=== PATIENT | female | born 1980 | race Caucasian/White ===

== ENCOUNTER 2019-01-21 00:34 | Emergency (ER) | payer MEDICAID ==
[~2019-01-21] VITALS: Ht 180.3 cm; Wt 175.4 kg
[~2019-01-21 00:34] MED LIST: ACETAMINOPHEN-1 EAC1 PO; ALBUTEROL INH; ALBUTEROL INHAL17 GM IH; BIAXIN 500 MG500 M1; DOXYCYCLINE 10100 MG PO; FAMOTIDINE PO; FLONASE 0.05%50 MCG NASAL; GLUCOPHAGE500 MG; HYDROCODONE-AP1 EAC6 PO; LEVSIN0.125 MG PO; LOPERAMIDE 2 MG2 M1 PO; LORTAB 10-3251 EACH PO; LORTAB 5 MG/5001 TA1 PO; MAPAP16 MG/0.5; MEDROLDOSEPACK PO; MOBIC7.5 MG PO; NABUMETONE 750750 M1 PO; NAPROSYN500 MG PO; NEXIUM40 MG PO; NORCO 5-325 TA1 EACH PO; NORFLEX100 MG PO; OMEPRAZOLE 20 M20 MG PO; OMEPRAZOLE40 MG PO; PEPCID40 MG PO; PERCOCET 5-3251 EACH PO; PHENERGAN 25 MG25 M1 PO; PHENERGAN25 MG/1 M1 PO; PREDNISONE50 MG PO; PREVACID 30MG C30 M1 PO; PRILOSEC 10MG C10 M1 PO; PRILOSEC 20 MG20 MG PO; PROTONIX40 M1 PO; PROTONIX40 M4 PO; PROTONIX40 MG PO; PROVERA5 MG; PROZAC20 MG PO; ROBAXIN500 MG PO; ROBITUSSIN COU118 M4; SERTRALINE HCL50 MG PO; TESSALON PERLE100 MG; TESSALON PERLE100 MG PO; TRAMADOL 50 MG50 MG PO; TYLENOL EXTRA500 MG PO; UNKNOWN PSYCH MED; VENTOLIN17 GM INH; ZANTAC 150MG T150 M1 PO; ZANTAC 150MG T150 MG PO; ZOFRAN 4 MG ORAL4 M1 DIS; ZOFRAN ODT4 MG PO; ZOFRAN4 MG PO; ZOLOFT PO; ZOLOFT100 MG PO
[2019-01-21 01:13] LABS: URINE BILIRUBIN NEGATIVE (Negative); URINE BLOOD NEGATIVE (Negative); URINE CLARITY CLEAR; URINE COLOR YELLOW; URINE GLUCOSE-RANDOM NEGATIVE (Negative); URINE KETONES TRACE (Negative); URINE LEUKOCYTES-REFLEX TRACE (Negative); URINE NITRITE-REFLEX NEGATIVE (Negative); URINE PROTEIN NEGATIVE (Negative); URINE SPECIFIC GRAVITY >= 1.030 (1.005-1.030); URINE UROBILINOGEN 0.2 E.U./dl (0.2-1.0)
[2019-01-21 01:23] LABS: BACTERIA-REFLEX >30 Many /HPF (None Seen); CASTS None Seen /LPF (None Seen); MUCUS 4-6 Moderate strn/LPF (None Seen); SQUAMOUS 4-10 Moderate /LPF (0-3); URINE RBC 0-2 Rare /HPF (0-2); URINE WBC-REFLEX 6-15 Few /HPF (0-5)
[2019-01-21 01:24] LABS: CRYSTALS None Seen /LPF (None Seen)
[2019-01-21 01:33] LABS: ABSOLUTE BASOPHILS 0.1 thou/uL (0.0-0.2); ABSOLUTE EOSINOPHILS 0.3 thou/uL (0.0-0.7); ABSOLUTE LYMPHOCYTES 2.4 thou/uL (0.8-5.3); ABSOLUTE MONOCYTES 0.8 thou/uL (0.0-1.2); ABSOLUTE NEUTROPHILS 4.5 thou/uL (1.6-8.1); BASOPHILS 1.1 %; EOSINOPHILS 3.5 %; HEMATOCRIT 44.6 % (37.0-47.0); HEMOGLOBIN 15.3 gm/dL (12.0-15.0); LYMPHOCYTES 29.3 %; MCH 29.9 pg (26.0-34.0); MCHC 34.3 g/dL (28.0-37.0); MCV 87.3 fL (80.0-100.0); MONOCYTES 10.1 %; NUCLEATED RBCS 0 /100WBC; PLATELET COUNT* 172 thou/uL (150-400); RDW-CV 13.2 % (10.5-14.5); WBC 8.1 thou/uL (4.0-11.0)
[2019-01-21 02:07] LABS: ALBUMIN 3.7 g/dL (3.4-5.0); CALCIUM 9.4 mg/dL (8.5-10.1); CREATININE 0.9 mg/dL (0.6-1.3); POTASSIUM 3.7 mmol/L (3.5-5.1); TOTAL BILIRUBIN 0.5 mg/dL (<0.1-1.0); TOTAL PROTEIN 7.9 g/dL (6.4-8.2)
[2019-01-21] MEDS ORDERED: ZOFRAN ODT4 MG DISSOLVE (04:04)
[2019-01-21] MEDS ORDERED: HYDROCODONE-AP1 EAC6 PO (04:04)
[2019-01-21 04:33] VITALS: BP 123/84
== END 2019-01-21 04:36 | disposition home or self-care (01) ==
LOC: M.ERS 00:34
PROVIDERS: Emergency Medicine Emergency Medical Services
DX: R10.31 Right lower quadrant pain (principal); R11.2 Nausea with vomiting, unspecified; F17.210 Nicotine dependence, cigarettes, uncomplicated; J45.909 Unspecified asthma, uncomplicated; K58.9 Irritable bowel syndrome, unspecified; K21.9 Gastro-esophageal reflux disease without esophagitis; Z88.0 Allergy status to penicillin; Z88.8 Allergy status to other drugs, medicaments and biological substances; Z88.1 Allergy status to other antibiotic agents; Z88.6 Allergy status to analgesic agent; Z90.49 Acquired absence of other specified parts of digestive tract; Z90.710 Acquired absence of both cervix and uterus; Z85.43 Personal history of malignant neoplasm of ovary

== ENCOUNTER 2019-01-25 04:41 | Emergency (ER) | payer MEDICAID ==
[~2019-01-25] VITALS: Ht 180.3 cm; Wt 172.4 kg
[~2019-01-25 04:41] MED LIST changes: +ZOFRAN ODT4 MG DISSOLVE
[2019-01-25 05:43] LABS: ABSOLUTE BASOPHILS 0.1 thou/uL (0.0-0.2); ABSOLUTE EOSINOPHILS 0.3 thou/uL (0.0-0.7); ABSOLUTE LYMPHOCYTES 2.6 thou/uL (0.8-5.3); ABSOLUTE MONOCYTES 0.9 thou/uL (0.0-1.2); EOSINOPHILS 3.4 %; HEMATOCRIT 43.2 % (37.0-47.0); HEMOGLOBIN 14.6 gm/dL (12.0-15.0); LYMPHOCYTES 29.6 %; MCH 29.4 pg (26.0-34.0); MCHC 33.8 g/dL (28.0-37.0); MCV 87.1 fL (80.0-100.0); MPV 8.1 fl. (7.2-11.1); NUCLEATED RBCS 0 /100WBC; PLATELET COUNT* 165 thou/uL (150-400); RBC 4.95 mil/uL (4.20-5.00); RDW-CV 12.7 % (10.5-14.5); WBC 8.9 thou/uL (4.0-11.0)
[2019-01-25 05:48] LABS: URINE BILIRUBIN NEGATIVE (Negative); URINE BLOOD NEGATIVE (Negative); URINE CLARITY CLEAR; URINE COLOR YELLOW; URINE GLUCOSE-RANDOM NEGATIVE (Negative); URINE KETONES NEGATIVE (Negative); URINE LEUKOCYTES-REFLEX NEGATIVE (Negative); URINE NITRITE-REFLEX NEGATIVE (Negative); URINE PROTEIN NEGATIVE (Negative); URINE SPECIFIC GRAVITY >= 1.030 (1.005-1.030); URINE UROBILINOGEN 0.2 E.U./dl (0.2-1.0)
[2019-01-25 05:51] LABS: ALBUMIN 3.4 g/dL (3.4-5.0); CALCIUM 9.3 mg/dL (8.5-10.1); POTASSIUM 3.8 mmol/L (3.5-5.1); TOTAL BILIRUBIN 0.3 mg/dL (<0.1-1.0); TOTAL PROTEIN 7.4 g/dL (6.4-8.2)
[2019-01-25 05:54] LABS: AMP/METHAMP Negative (Negative); BARBITURATES Negative (Negative); BENZODIAZEPINES Negative (Negative); COCAINE Negative (Negative); METHADONE Negative (Negative); OPIATES Negative (Negative); PCP Negative (Negative); THC Negative (Negative)
[2019-01-25] MEDS ORDERED: PERCOCET 10-321 EACH PO (07:05)
[2019-01-25 07:41] VITALS: BP 149/96
== END 2019-01-25 07:43 | disposition home or self-care (01) ==
LOC: M.ERS 04:41
PROVIDERS: Emergency Medicine
DX: R19.07 Generalized intra-abdominal and pelvic swelling, mass and lump (principal); F17.210 Nicotine dependence, cigarettes, uncomplicated; J45.909 Unspecified asthma, uncomplicated; K21.9 Gastro-esophageal reflux disease without esophagitis; K58.9 Irritable bowel syndrome, unspecified; Z88.8 Allergy status to other drugs, medicaments and biological substances; Z88.0 Allergy status to penicillin; Z88.6 Allergy status to analgesic agent; Z90.49 Acquired absence of other specified parts of digestive tract; Z90.710 Acquired absence of both cervix and uterus; Z85.43 Personal history of malignant neoplasm of ovary

== ENCOUNTER 2019-02-27 01:14 | Emergency (ER) | payer MEDICAID ==
[~2019-02-27] VITALS: Ht 180.3 cm; Wt 172.4 kg
[~2019-02-27 01:14] MED LIST changes: +PERCOCET 10-321 EACH PO
[2019-02-27] MEDS ORDERED: WELLBUTRIN SR150 MG PO (01:18)
[2019-02-27 01:30] LABS: ABSOLUTE BASOPHILS 0.1 thou/uL (0.0-0.2); ABSOLUTE EOSINOPHILS 0.3 thou/uL (0.0-0.7); ABSOLUTE NEUTROPHILS 4.9 thou/uL (1.6-8.1); BASOPHILS 0.8 %; EOSINOPHILS 3.3 %; HEMATOCRIT 44.7 % (37.0-47.0); HEMOGLOBIN 14.9 gm/dL (12.0-15.0); LYMPHOCYTES 32.5 %; MCH 29.2 pg (26.0-34.0); MCHC 33.4 g/dL (28.0-37.0); MCV 87.3 fL (80.0-100.0); MONOCYTES 10.5 %; MPV 7.4 fl. (7.2-11.1); NUCLEATED RBCS 0 /100WBC; PLATELET COUNT* 176 thou/uL (150-400); POLYS 52.9 %; RBC 5.12 mil/uL (4.20-5.00); RDW-CV 12.9 % (10.5-14.5); WBC 9.2 thou/uL (4.0-11.0)
[2019-02-27 01:39] LABS: ANION GAP 8 mmol/L (7-16); BUN 12 mg/dL (7-18); CALCIUM 9.2 mg/dL (8.5-10.1); CHLORIDE 104 mmol/L (98-107); CO2 31 mmol/L (21-32); CREATININE 0.9 mg/dL (0.6-1.3); GLUCOSE 97 mg/dL (70-99); POTASSIUM 3.8 mmol/L (3.5-5.1); SODIUM 143 mmol/L (136-145)
[2019-02-27 01:40] LABS: URINE BILIRUBIN NEGATIVE (Negative); URINE BLOOD NEGATIVE (Negative); URINE CLARITY CLEAR; URINE COLOR YELLOW; URINE GLUCOSE-RANDOM NEGATIVE (Negative); URINE KETONES NEGATIVE (Negative); URINE LEUKOCYTES-REFLEX NEGATIVE (Negative); URINE NITRITE-REFLEX NEGATIVE (Negative); URINE PROTEIN NEGATIVE (Negative); URINE SPECIFIC GRAVITY >= 1.030 (1.005-1.030); URINE UROBILINOGEN 0.2 E.U./dl (0.2-1.0)
[2019-02-27 01:54] LABS: ALBUMIN 3.6 g/dL (3.4-5.0); ALKALINE PHOSPHATASE 128 U/L (46-116); LIPASE 198 U/L (73-393); SGOT 57 U/L (15-37); SGPT 123 U/L (30-65); TOTAL BILIRUBIN 0.4 mg/dL (<0.1-1.0); TOTAL PROTEIN 7.7 g/dL (6.4-8.2); TROPONIN-I LEVEL <0.06 ng/mL (<0.06)
[2019-02-27] MEDS ORDERED: ZOFRAN ODT4 MG DISSOLVE (04:06)
[2019-02-27] MEDS ORDERED: HYDROCODONE-AP1 EAC6 PO (04:06)
[2019-02-27 04:26] VITALS: BP 140/92
--- NOTE | 2019-02-28 14:27 | EKG ---
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
== END 2019-02-27 04:27 | disposition home or self-care (01) ==
LOC: M.ERS 01:14
PROVIDERS: Emergency Medicine Emergency Medical Services
DX: R10.31 Right lower quadrant pain (principal); F17.210 Nicotine dependence, cigarettes, uncomplicated; J45.909 Unspecified asthma, uncomplicated; K21.9 Gastro-esophageal reflux disease without esophagitis; Z90.49 Acquired absence of other specified parts of digestive tract; Z90.710 Acquired absence of both cervix and uterus; Z85.43 Personal history of malignant neoplasm of ovary; Z87.442 Personal history of urinary calculi; Z88.8 Allergy status to other drugs, medicaments and biological substances; Z88.0 Allergy status to penicillin; Z88.1 Allergy status to other antibiotic agents; Z88.6 Allergy status to analgesic agent

== ENCOUNTER 2019-03-09 15:03 | Emergency (ER) | payer MEDICAID ==
[~2019-03-09] VITALS: Ht 180.3 cm; Wt 154.2 kg
[~2019-03-09 15:03] MED LIST changes: +WELLBUTRIN SR150 MG PO
[2019-03-09 15:44] LABS: ABSOLUTE BASOPHILS 0.1 thou/uL (0.0-0.2); ABSOLUTE EOSINOPHILS 0.3 thou/uL (0.0-0.7); ABSOLUTE LYMPHOCYTES 2.2 thou/uL (0.8-5.3); ABSOLUTE MONOCYTES 0.8 thou/uL (0.0-1.2); ABSOLUTE NEUTROPHILS 4.4 thou/uL (1.6-8.1); EOSINOPHILS 3.3 %; HEMATOCRIT 41.3 % (37.0-47.0); HEMOGLOBIN 13.9 gm/dL (12.0-15.0); LYMPHOCYTES 28.9 %; MCH 29.1 pg (26.0-34.0); MCHC 33.7 g/dL (28.0-37.0); MCV 86.4 fL (80.0-100.0); MONOCYTES 10.7 %; MPV 7.4 fl. (7.2-11.1); NUCLEATED RBCS 0 /100WBC; PLATELET COUNT* 179 thou/uL (150-400); POLYS 56.1 %; RBC 4.77 mil/uL (4.20-5.00); RDW-CV 13.2 % (10.5-14.5); WBC 7.8 thou/uL (4.0-11.0)
[2019-03-09 15:47] LABS: CALCIUM 9.2 mg/dL (8.5-10.1); CREATININE 0.8 mg/dL (0.6-1.3); POTASSIUM 3.8 mmol/L (3.5-5.1)
[2019-03-09 17:01] LABS: URINE BILIRUBIN NEGATIVE (Negative); URINE BLOOD NEGATIVE (Negative); URINE CLARITY CLEAR; URINE COLOR YELLOW; URINE GLUCOSE-RANDOM NEGATIVE (Negative); URINE KETONES NEGATIVE (Negative); URINE LEUKOCYTES-REFLEX NEGATIVE (Negative); URINE NITRITE-REFLEX NEGATIVE (Negative); URINE PROTEIN TRACE (Negative); URINE SPECIFIC GRAVITY 1.025 (1.005-1.030); URINE UROBILINOGEN 0.2 E.U./dl (0.2-1.0)
[2019-03-09 17:52] VITALS: BP 164/85
== END 2019-03-09 17:53 | disposition home or self-care (01) ==
LOC: M.ERS 15:03
PROVIDERS: Nurse Practitioner Psychiatric/Mental Health
DX: R10.31 Right lower quadrant pain (principal); R11.2 Nausea with vomiting, unspecified; J45.909 Unspecified asthma, uncomplicated; K21.9 Gastro-esophageal reflux disease without esophagitis; F17.210 Nicotine dependence, cigarettes, uncomplicated; Z88.0 Allergy status to penicillin; Z88.1 Allergy status to other antibiotic agents; Z90.49 Acquired absence of other specified parts of digestive tract; Z90.710 Acquired absence of both cervix and uterus; Z85.43 Personal history of malignant neoplasm of ovary

== ENCOUNTER 2019-03-11 21:22 | Emergency (ER) | payer MEDICAID ==
[~2019-03-11] VITALS: Ht 180.3 cm; Wt 163.3 kg
[2019-03-11 21:57] LABS: URINE BILIRUBIN NEGATIVE (Negative); URINE BLOOD NEGATIVE (Negative); URINE CLARITY CLEAR; URINE COLOR YELLOW; URINE GLUCOSE-RANDOM NEGATIVE (Negative); URINE KETONES TRACE (Negative); URINE LEUKOCYTES-REFLEX NEGATIVE (Negative); URINE NITRITE-REFLEX NEGATIVE (Negative); URINE PROTEIN NEGATIVE (Negative); URINE SPECIFIC GRAVITY 1.015 (1.005-1.030); URINE UROBILINOGEN 0.2 E.U./dl (0.2-1.0)
[2019-03-11 22:00] LABS: ABSOLUTE BASOPHILS 0.1 thou/uL (0.0-0.2); ABSOLUTE EOSINOPHILS 0.3 thou/uL (0.0-0.7); ABSOLUTE LYMPHOCYTES 2.5 thou/uL (0.8-5.3); ABSOLUTE MONOCYTES 0.7 thou/uL (0.0-1.2); ABSOLUTE NEUTROPHILS 5.1 thou/uL (1.6-8.1); BASOPHILS 1.3 %; EOSINOPHILS 3.8 %; HEMATOCRIT 42.4 % (37.0-47.0); HEMOGLOBIN 14.4 gm/dL (12.0-15.0); LYMPHOCYTES 28.7 %; MCH 29.6 pg (26.0-34.0); MPV 7.4 fl. (7.2-11.1); NUCLEATED RBCS 0 /100WBC; PLATELET COUNT* 181 thou/uL (150-400); POLYS 58.2 %; RBC 4.87 mil/uL (4.20-5.00); RDW-CV 13.1 % (10.5-14.5); WBC 8.7 thou/uL (4.0-11.0)
[2019-03-11 22:06] LABS: CALCIUM 9.2 mg/dL (8.5-10.1); POTASSIUM 3.8 mmol/L (3.5-5.1)
[2019-03-11 22:11] LABS: ALBUMIN 3.4 g/dL (3.4-5.0); TOTAL BILIRUBIN 0.3 mg/dL (<0.1-1.0); TOTAL PROTEIN 7.3 g/dL (6.4-8.2)
[2019-03-11 22:22] VITALS: BP 166/79
== END 2019-03-11 22:22 | disposition home or self-care (01) ==
LOC: M.ERS 21:22
PROVIDERS: Emergency Medicine
DX: G89.29 Other chronic pain (principal); R10.31 Right lower quadrant pain; J45.909 Unspecified asthma, uncomplicated; K21.9 Gastro-esophageal reflux disease without esophagitis; F31.9 Bipolar disorder, unspecified; Z85.43 Personal history of malignant neoplasm of ovary; Z90.49 Acquired absence of other specified parts of digestive tract; Z90.710 Acquired absence of both cervix and uterus; F17.210 Nicotine dependence, cigarettes, uncomplicated; Z88.0 Allergy status to penicillin; Z88.1 Allergy status to other antibiotic agents; Z88.8 Allergy status to other drugs, medicaments and biological substances

== ENCOUNTER 2019-03-20 22:18 | Emergency (ER) | payer MEDICAID ==
[~2019-03-20] VITALS: Ht 180.3 cm; Wt 172.4 kg
[2019-03-20 23:27] LABS: ABSOLUTE BASOPHILS 0.1 thou/uL (0.0-0.2); ABSOLUTE EOSINOPHILS 0.2 thou/uL (0.0-0.7); ABSOLUTE LYMPHOCYTES 2.2 thou/uL (0.8-5.3); ABSOLUTE MONOCYTES 0.6 thou/uL (0.0-1.2); ABSOLUTE NEUTROPHILS 3.8 thou/uL (1.6-8.1); BASOPHILS 1.1 %; EOSINOPHILS 3.6 %; HEMOGLOBIN 14.8 gm/dL (12.0-15.0); LYMPHOCYTES 32.4 %; MCH 29.3 pg (26.0-34.0); MCHC 33.5 g/dL (28.0-37.0); MCV 87.5 fL (80.0-100.0); MONOCYTES 8.6 %; MPV 7.5 fl. (7.2-11.1); NUCLEATED RBCS 0 /100WBC; PLATELET COUNT* 170 thou/uL (150-400); POLYS 54.3 %; RBC 5.03 mil/uL (4.20-5.00); RDW-CV 13.2 % (10.5-14.5); WBC 6.9 thou/uL (4.0-11.0)
[2019-03-20 23:31] LABS: CALCIUM 8.9 mg/dL (8.5-10.1); CREATININE 0.8 mg/dL (0.6-1.3); POTASSIUM 4.3 mmol/L (3.5-5.1)
[2019-03-20 23:36] LABS: ALBUMIN 3.4 g/dL (3.4-5.0); TOTAL BILIRUBIN 0.5 mg/dL (<0.1-1.0); TOTAL PROTEIN 7.4 g/dL (6.4-8.2)
[2019-03-20 23:57] LABS: URINE BILIRUBIN NEGATIVE (Negative); URINE BLOOD NEGATIVE (Negative); URINE CLARITY CLEAR; URINE COLOR YELLOW; URINE GLUCOSE-RANDOM NEGATIVE (Negative); URINE KETONES NEGATIVE (Negative); URINE LEUKOCYTES-REFLEX NEGATIVE (Negative); URINE NITRITE-REFLEX NEGATIVE (Negative); URINE PROTEIN NEGATIVE (Negative); URINE SPECIFIC GRAVITY >= 1.030 (1.005-1.030); URINE UROBILINOGEN 0.2 E.U./dl (0.2-1.0)
[2019-03-21] MEDS ORDERED: ONDANSETRON HCL4 M2 PO (00:36)
[2019-03-21 01:27] VITALS: BP 131/80
--- NOTE | 2019-03-21 11:35 | EKG ---
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 03/21/19 1135 2306 2306 Thanh Maurice MD, [facility] /EPI
== END 2019-03-21 01:28 | disposition home or self-care (01) ==
LOC: M.ERS 22:18
PROVIDERS: Physician Assistant
DX: R10.13 Epigastric pain (principal); R11.2 Nausea with vomiting, unspecified; F17.210 Nicotine dependence, cigarettes, uncomplicated; F31.9 Bipolar disorder, unspecified; K21.9 Gastro-esophageal reflux disease without esophagitis; J45.909 Unspecified asthma, uncomplicated; Z88.8 Allergy status to other drugs, medicaments and biological substances; Z88.0 Allergy status to penicillin; Z88.1 Allergy status to other antibiotic agents; Z88.6 Allergy status to analgesic agent; Z90.49 Acquired absence of other specified parts of digestive tract; Z90.710 Acquired absence of both cervix and uterus; Z85.43 Personal history of malignant neoplasm of ovary

== ENCOUNTER 2019-04-28 22:54 | Emergency (ER) | payer MEDICAID ==
[~2019-04-28] VITALS: Ht 180.3 cm; Wt 172.4 kg
[~2019-04-28 22:54] MED LIST changes: +ONDANSETRON HCL4 M2 PO
[2019-04-28 23:24] LABS: ABSOLUTE BASOPHILS 0.1 thou/uL (0.0-0.2); ABSOLUTE EOSINOPHILS 0.2 thou/uL (0.0-0.7); ABSOLUTE LYMPHOCYTES 2.7 thou/uL (0.8-5.3); ABSOLUTE MONOCYTES 0.6 thou/uL (0.0-1.2); ABSOLUTE NEUTROPHILS 4.8 thou/uL (1.6-8.1); BASOPHILS 1.3 %; EOSINOPHILS 2.6 %; HEMATOCRIT 41.7 % (37.0-47.0); HEMOGLOBIN 14.2 gm/dL (12.0-15.0); LYMPHOCYTES 32.2 %; MCH 29.6 pg (26.0-34.0); MCHC 34.1 g/dL (28.0-37.0); MCV 86.7 fL (80.0-100.0); MONOCYTES 7.4 %; MPV 7.7 fl. (7.2-11.1); NUCLEATED RBCS 0 /100WBC; PLATELET COUNT* 188 thou/uL (150-400); POLYS 56.5 %; WBC 8.4 thou/uL (4.0-11.0)
[2019-04-28 23:32] LABS: ANION GAP 10 mmol/L (7-16); BUN 13 mg/dL (7-18); CHLORIDE 106 mmol/L (98-107); CO2 27 mmol/L (21-32); CREATININE 1.1 mg/dL (0.6-1.3); GLUCOSE 170 mg/dL (70-99); POTASSIUM 3.6 mmol/L (3.5-5.1); SODIUM 143 mmol/L (136-145)
[2019-04-28 23:37] LABS: INR 0.9; PROTIME 9.7 Seconds (9.20-11.50)
[2019-04-28 23:45] LABS: ALBUMIN 3.5 g/dL (3.4-5.0); ALKALINE PHOSPHATASE 121 U/L (46-116); LIPASE 260 U/L (73-393); NT-PRO BRAIN NAT PEPTIDE 46 pg/mL (<300); SGOT 50 U/L (15-37); SGPT 105 U/L (30-65); TOTAL BILIRUBIN 0.2 mg/dL (<0.1-1.0); TOTAL PROTEIN 7.4 g/dL (6.4-8.2); TROPONIN-I LEVEL <0.06 ng/mL (<0.06)
[2019-04-29] MEDS ORDERED: ACETAMINOPHEN-1 EAC1 PO (01:15)
[2019-04-29 02:05] VITALS: BP 113/64
--- NOTE | 2019-05-01 16:50 | EKG ---
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1980 Requested By: Leia Chandler Order Number: [id number] MD: Hao Keane Measurements Intervals [place] Rate: 104 P: 50 MT: 156 QRS: 37 QRSD: 91 T: 31 QT: 336 QTc: 442 Interpretive Statements Sinus tachycardia Baseline wander in lead(s) V1 Compared to ECG 03/20/2019 23:06:10 Sinus rhythm no longer present T-wave abnormality no longer present Electronically Signed On 05-01-2019 16:49:57 CDT by Hao Keane [email or web address] <ELECTRONICALLY SIGNED> By: Hao Keane MD, FAC 05/01/19 1649 2300 99 Hao Keane MD, [facility] /EPI
== END 2019-04-29 02:05 | disposition home or self-care (01) ==
LOC: M.ERS 22:54
PROVIDERS: Emergency Medicine
DX: R07.89 Other chest pain (principal); R20.0 Anesthesia of skin; J45.909 Unspecified asthma, uncomplicated; K21.9 Gastro-esophageal reflux disease without esophagitis; F17.210 Nicotine dependence, cigarettes, uncomplicated; F31.9 Bipolar disorder, unspecified; R53.1 Weakness; Z90.49 Acquired absence of other specified parts of digestive tract; Z90.710 Acquired absence of both cervix and uterus; Z88.0 Allergy status to penicillin; Z88.1 Allergy status to other antibiotic agents; Z88.5 Allergy status to narcotic agent

== ENCOUNTER 2019-05-29 22:19 | Emergency (ER) | payer MEDICAID ==
[~2019-05-29] VITALS: Ht 180.3 cm; Wt 163.3 kg
[2019-05-30 00:25] LABS: URINE BLOOD NEGATIVE (Negative); URINE CLARITY CLEAR; URINE COLOR YELLOW; URINE GLUCOSE-RANDOM NEGATIVE (Negative); URINE KETONES NEGATIVE (Negative); URINE LEUKOCYTES-REFLEX NEGATIVE (Negative); URINE NITRITE-REFLEX NEGATIVE (Negative); URINE PROTEIN TRACE (Negative); URINE SPECIFIC GRAVITY >= 1.030 (1.005-1.030); URINE UROBILINOGEN 0.2 E.U./dl (0.2-1.0)
[2019-05-30 00:38] LABS: URINE BILIRUBIN 1+ (Negative)
[2019-05-30 00:39] LABS: ICTOTEST (BILI CONFIRMATORY) Negative (Negative)
[2019-05-30] MEDS ORDERED: NORCO 7.5-3251 EACH PO (00:43)
[2019-05-30 01:10] VITALS: BP 134/76
== END 2019-05-30 01:10 | disposition home or self-care (01) ==
LOC: M.ERS 22:19
PROVIDERS: Emergency Medicine
DX: M54.5 Low back pain (principal); F31.9 Bipolar disorder, unspecified; J45.909 Unspecified asthma, uncomplicated; K21.9 Gastro-esophageal reflux disease without esophagitis; F17.210 Nicotine dependence, cigarettes, uncomplicated; Z88.0 Allergy status to penicillin; Z88.1 Allergy status to other antibiotic agents; Z88.6 Allergy status to analgesic agent; Z90.710 Acquired absence of both cervix and uterus; Z90.49 Acquired absence of other specified parts of digestive tract

== ENCOUNTER 2019-06-21 22:41 | Emergency (ER) | payer MEDICAID ==
[~2019-06-21] VITALS: Ht 180.3 cm; Wt 163.3 kg
[~2019-06-21 22:41] MED LIST changes: +NORCO 7.5-3251 EACH PO
[2019-06-21 23:24] LABS: ABSOLUTE BASOPHILS 0.1 thou/uL (0.0-0.2); ABSOLUTE EOSINOPHILS 0.3 thou/uL (0.0-0.7); ABSOLUTE LYMPHOCYTES 2.4 thou/uL (0.8-5.3); ABSOLUTE MONOCYTES 0.8 thou/uL (0.0-1.2); BASOPHILS 1.1 %; EOSINOPHILS 3.1 %; HEMATOCRIT 41.7 % (37.0-47.0); HEMOGLOBIN 14.6 gm/dL (12.0-15.0); MCH 30.2 pg (26.0-34.0); MCHC 35.1 g/dL (28.0-37.0); MCV 86.2 fL (80.0-100.0); MONOCYTES 9.3 %; MPV 7.6 fl. (7.2-11.1); NUCLEATED RBCS 0 /100WBC; PLATELET COUNT* 185 thou/uL (150-400); POLYS 58.5 %; RBC 4.84 mil/uL (4.20-5.00); RDW-CV 13.4 % (10.5-14.5); WBC 8.5 thou/uL (4.0-11.0)
[2019-06-21 23:32] LABS: CALCIUM 9.2 mg/dL (8.5-10.1); POTASSIUM 3.4 mmol/L (3.5-5.1)
[2019-06-21 23:36] LABS: ALBUMIN 3.6 g/dL (3.4-5.0); TOTAL BILIRUBIN 0.5 mg/dL (<0.1-1.0); TOTAL PROTEIN 7.2 g/dL (6.4-8.2)
[2019-06-21] MEDS ORDERED: CARAFATE 1 GM TA1 GM PO (23:59)
[2019-06-22 00:10] VITALS: BP 141/86
--- NOTE | 2019-06-22 09:50 | EKG ---
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
== END 2019-06-22 00:10 | disposition home or self-care (01) ==
LOC: M.ERS 22:41
PROVIDERS: Emergency Medicine
DX: K21.9 Gastro-esophageal reflux disease without esophagitis (principal); F31.9 Bipolar disorder, unspecified; J45.909 Unspecified asthma, uncomplicated; F17.210 Nicotine dependence, cigarettes, uncomplicated; Z88.0 Allergy status to penicillin; Z88.1 Allergy status to other antibiotic agents; Z88.6 Allergy status to analgesic agent; Z88.8 Allergy status to other drugs, medicaments and biological substances; Z90.49 Acquired absence of other specified parts of digestive tract; Z90.710 Acquired absence of both cervix and uterus; Z85.43 Personal history of malignant neoplasm of ovary

== ENCOUNTER 2019-08-10 23:11 | Emergency (ER) | payer MEDICAID ==
[~2019-08-10] VITALS: Ht 180.3 cm; Wt 163.3 kg
[~2019-08-10 23:11] MED LIST changes: +CARAFATE 1 GM TA1 GM PO; +PROMS25 WY RECTAL
[2019-08-10 23:37] LABS: URINE BILIRUBIN NEGATIVE (Negative); URINE BLOOD NEGATIVE (Negative); URINE CLARITY CLEAR; URINE COLOR YELLOW; URINE GLUCOSE-RANDOM NEGATIVE (Negative); URINE KETONES NEGATIVE (Negative); URINE LEUKOCYTES-REFLEX NEGATIVE (Negative); URINE NITRITE-REFLEX NEGATIVE (Negative); URINE PROTEIN NEGATIVE (Negative); URINE SPECIFIC GRAVITY >= 1.030 (1.005-1.030); URINE UROBILINOGEN 0.2 E.U./dl (0.2-1.0)
[2019-08-10 23:44] LABS: AMP/METHAMP Negative (Negative); BARBITURATES Negative (Negative); BENZODIAZEPINES Negative (Negative); COCAINE Negative (Negative); METHADONE Negative (Negative); OPIATES Negative (Negative); PCP Negative (Negative); THC Negative (Negative)
[2019-08-10 23:48] LABS: HEMATOCRIT 41.2 % (37.0-47.0); HEMOGLOBIN 14.4 gm/dL (12.0-15.0); MCH 30.4 pg (26.0-34.0); MCV 86.9 fL (80.0-100.0); MPV 7.5 fl. (7.2-11.1); RBC 4.74 mil/uL (4.20-5.00); RDW-CV 13.3 % (10.5-14.5); WBC 9.6 thou/uL (4.0-11.0)
[2019-08-10 23:57] LABS: CALCIUM 9.5 mg/dL (8.5-10.1); CREATININE 0.9 mg/dL (0.6-1.3); POTASSIUM 3.5 mmol/L (3.5-5.1)
[2019-08-11 00:02] LABS: ALBUMIN 3.6 g/dL (3.4-5.0); TOTAL BILIRUBIN 0.3 mg/dL (<0.1-1.0); TOTAL PROTEIN 7.5 g/dL (6.4-8.2)
[2019-08-11] MEDS ORDERED: ZOFRAN ODT4 MG PO (01:16)
[2019-08-11] MEDS ORDERED: IBUPROFEN 800800 MG PO (01:16)
[2019-08-11 01:25] VITALS: BP 134/78
== END 2019-08-11 01:25 | disposition home or self-care (01) ==
LOC: M.ERS 23:11
PROVIDERS: Personal Emergency Response Attendant
DX: R10.31 Right lower quadrant pain (principal); F31.9 Bipolar disorder, unspecified; J45.909 Unspecified asthma, uncomplicated; K21.9 Gastro-esophageal reflux disease without esophagitis; F17.210 Nicotine dependence, cigarettes, uncomplicated; Z88.1 Allergy status to other antibiotic agents; Z88.6 Allergy status to analgesic agent; Z88.8 Allergy status to other drugs, medicaments and biological substances; Z90.49 Acquired absence of other specified parts of digestive tract; Z90.710 Acquired absence of both cervix and uterus; Z85.43 Personal history of malignant neoplasm of ovary; Z79.899 Other long term (current) drug therapy

== ENCOUNTER 2019-09-15 23:23 | Emergency (ER) | payer MEDICAID ==
[~2019-09-15] VITALS: Ht 180.3 cm; Wt 163.3 kg
[~2019-09-15 23:23] MED LIST changes: +IBUPROFEN 800800 MG PO
[2019-09-15] MEDS ORDERED: HYDROCHLOROTHIAZ1 GM (23:32)
[2019-09-15 23:41] LABS: URINE BILIRUBIN NEGATIVE (Negative); URINE BLOOD NEGATIVE (Negative); URINE CLARITY CLEAR; URINE COLOR YELLOW; URINE GLUCOSE-RANDOM NEGATIVE (Negative); URINE KETONES NEGATIVE (Negative); URINE LEUKOCYTES-REFLEX NEGATIVE (Negative); URINE NITRITE-REFLEX NEGATIVE (Negative); URINE PROTEIN NEGATIVE (Negative); URINE SPECIFIC GRAVITY 1.025 (1.005-1.030); URINE UROBILINOGEN 0.2 E.U./dl (0.2-1.0)
[2019-09-15 23:57] LABS: ABSOLUTE BASOPHILS 0.1 thou/uL (0.0-0.2); ABSOLUTE EOSINOPHILS 0.2 thou/uL (0.0-0.7); ABSOLUTE LYMPHOCYTES 2.8 thou/uL (0.8-5.3); ABSOLUTE MONOCYTES 0.7 thou/uL (0.0-1.2); EOSINOPHILS 2.5 %; HEMATOCRIT 44.7 % (37.0-47.0); HEMOGLOBIN 15.4 gm/dL (12.0-15.0); LYMPHOCYTES 28.1 %; MCH 29.9 pg (26.0-34.0); MCHC 34.4 g/dL (28.0-37.0); MCV 87.1 fL (80.0-100.0); MONOCYTES 7.3 %; MPV 7.7 fl. (7.2-11.1); NUCLEATED RBCS 0 /100WBC; PLATELET COUNT* 182 thou/uL (150-400); POLYS 61.1 %; RBC 5.13 mil/uL (4.20-5.00); RDW-CV 12.6 % (10.5-14.5); WBC 9.9 thou/uL (4.0-11.0)
[2019-09-16 00:06] LABS: CALCIUM 9.3 mg/dL (8.5-10.1); POTASSIUM 3.4 mmol/L (3.5-5.1)
[2019-09-16 00:10] LABS: ALBUMIN 3.7 g/dL (3.4-5.0); TOTAL BILIRUBIN 0.3 mg/dL (<0.1-1.0)
[2019-09-16] MEDS ORDERED: IBU800 MG PO (00:58)
[2019-09-16 01:00] VITALS: BP 100/60
[2019-09-16] MEDS ORDERED: ZOFRAN4 MG PO (01:00)
== END 2019-09-16 01:00 | disposition home or self-care (01) ==
LOC: M.ERS 23:23
PROVIDERS: Personal Emergency Response Attendant
DX: R10.84 Generalized abdominal pain (principal); R11.0 Nausea; J45.909 Unspecified asthma, uncomplicated; K21.9 Gastro-esophageal reflux disease without esophagitis; F31.9 Bipolar disorder, unspecified; F17.210 Nicotine dependence, cigarettes, uncomplicated; Z90.49 Acquired absence of other specified parts of digestive tract; Z90.710 Acquired absence of both cervix and uterus; Z85.43 Personal history of malignant neoplasm of ovary; Z88.1 Allergy status to other antibiotic agents; Z88.0 Allergy status to penicillin; Z88.6 Allergy status to analgesic agent

== ENCOUNTER 2019-10-17 22:23 | Emergency (ER) | payer MEDICAID ==
[~2019-10-17] VITALS: Ht 180.3 cm; Wt 163.3 kg
[~2019-10-17 22:23] MED LIST changes: +HYDROCHLOROTHIA25 M2 PO; +HYDROCHLOROTHIAZ1 GM PO; +IBU800 MG PO
[2019-10-17 22:44] LABS: URINE BILIRUBIN NEGATIVE (Negative); URINE BLOOD NEGATIVE (Negative); URINE CLARITY CLEAR; URINE COLOR YELLOW; URINE GLUCOSE-RANDOM NEGATIVE (Negative); URINE KETONES NEGATIVE (Negative); URINE LEUKOCYTES-REFLEX TRACE (Negative); URINE NITRITE-REFLEX NEGATIVE (Negative); URINE PROTEIN NEGATIVE (Negative); URINE SPECIFIC GRAVITY >= 1.030 (1.005-1.030); URINE UROBILINOGEN 0.2 E.U./dl (0.2-1.0)
[2019-10-17 22:45] LABS: ABSOLUTE BASOPHILS 0.1 thou/uL (0.0-0.2); ABSOLUTE EOSINOPHILS 0.2 thou/uL (0.0-0.7); ABSOLUTE LYMPHOCYTES 2.8 thou/uL (0.8-5.3); EOSINOPHILS 1.9 %; HEMATOCRIT 42.7 % (37.0-47.0); HEMOGLOBIN 14.6 gm/dL (12.0-15.0); LYMPHOCYTES 25.1 %; MCH 29.5 pg (26.0-34.0); MCHC 34.2 g/dL (28.0-37.0); MCV 86.4 fL (80.0-100.0); MONOCYTES 8.7 %; MPV 7.7 fl. (7.2-11.1); NUCLEATED RBCS 0 /100WBC; PLATELET COUNT* 214 thou/uL (150-400); POLYS 63.3 %; RBC 4.94 mil/uL (4.20-5.00); RDW-CV 12.7 % (10.5-14.5); WBC 11.1 thou/uL (4.0-11.0)
[2019-10-17 22:50] LABS: BACTERIA-REFLEX >30 Many /HPF (None Seen); CASTS None Seen /LPF (None Seen); CRYSTALS None Seen /LPF (None Seen); MUCUS 4-6 Moderate strn/LPF (None Seen); SQUAMOUS 4-10 Moderate /LPF (0-3); URINE RBC 3-10 Few /HPF (0-2); URINE WBC-REFLEX 6-15 Few /HPF (0-5); WBC CLUMPS Few (None Seen)
[2019-10-17 23:05] LABS: CALCIUM 8.9 mg/dL (8.5-10.1); POTASSIUM 3.8 mmol/L (3.5-5.1)
[2019-10-17 23:10] LABS: ALBUMIN 3.7 g/dL (3.4-5.0); TOTAL BILIRUBIN 0.4 mg/dL (<0.1-1.0); TOTAL PROTEIN 8.1 g/dL (6.4-8.2)
[2019-10-18 00:08] VITALS: BP 108/60
--- NOTE | 2019-10-18 15:02 | EKG ---
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
== END 2019-10-18 00:08 | disposition home or self-care (01) ==
LOC: M.ERS 22:23
PROVIDERS: Family Medicine
DX: R10.31 Right lower quadrant pain (principal); R19.7 Diarrhea, unspecified; K21.9 Gastro-esophageal reflux disease without esophagitis; J45.909 Unspecified asthma, uncomplicated; F17.210 Nicotine dependence, cigarettes, uncomplicated; Z88.0 Allergy status to penicillin; Z88.1 Allergy status to other antibiotic agents; Z88.6 Allergy status to analgesic agent; Z88.8 Allergy status to other drugs, medicaments and biological substances; Z90.49 Acquired absence of other specified parts of digestive tract; Z90.710 Acquired absence of both cervix and uterus; Z85.43 Personal history of malignant neoplasm of ovary

== ENCOUNTER 2019-11-12 04:31 | Emergency (ER) | payer MEDICAID ==
[~2019-11-12] VITALS: Ht 180.3 cm; Wt 163.3 kg
[2019-11-12 05:39] LABS: INFLUENZA A ANTIGEN Negative (Negative); INFLUENZA B ANTIGEN Negative (Negative)
[2019-11-12] MEDS ORDERED: CLEOCIN HCL300 MG PO (05:48)
[2019-11-12] MEDS ORDERED: HYDROCODON-ACE1 EAC8 PO (05:49)
[2019-11-12] MEDS ORDERED: PROAIR HFA8.5 GM INH (05:50)
[2019-11-12] MEDS ORDERED: PREDNISONE50 MG PO (05:50)
[2019-11-12 05:58] VITALS: BP 158/90
== END 2019-11-12 05:58 | disposition home or self-care (01) ==
LOC: M.ERS 04:31
PROVIDERS: Emergency Medicine
DX: J02.0 Streptococcal pharyngitis (principal); J45.909 Unspecified asthma, uncomplicated; K21.9 Gastro-esophageal reflux disease without esophagitis; F17.210 Nicotine dependence, cigarettes, uncomplicated; Z90.49 Acquired absence of other specified parts of digestive tract; Z90.710 Acquired absence of both cervix and uterus; Z85.43 Personal history of malignant neoplasm of ovary; Z88.0 Allergy status to penicillin; Z88.6 Allergy status to analgesic agent; Z88.1 Allergy status to other antibiotic agents

== ENCOUNTER 2020-02-09 00:12 | Emergency (ER) | payer MEDICAID ==
[~2020-02-09] VITALS: Ht 180.3 cm; Wt 158.8 kg
[~2020-02-09 00:12] MED LIST changes: +CLEOCIN HCL300 MG PO; +HYDROCODON-ACE1 EAC8 PO; +PROAIR HFA8.5 GM INH
[2020-02-09 01:01] LABS: ABSOLUTE BASOPHILS 0.1 thou/uL (0.0-0.2); ABSOLUTE EOSINOPHILS 0.3 thou/uL (0.0-0.7); ABSOLUTE LYMPHOCYTES 3.2 thou/uL (0.8-5.3); ABSOLUTE MONOCYTES 0.8 thou/uL (0.0-1.2); ABSOLUTE NEUTROPHILS 5.3 thou/uL (1.6-8.1); BASOPHILS 1.3 %; EOSINOPHILS 3.2 %; HEMATOCRIT 40.5 % (37.0-47.0); LYMPHOCYTES 33.1 %; MCH 29.7 pg (26.0-34.0); MCHC 34.6 g/dL (28.0-37.0); MPV 7.5 fl. (7.2-11.1); NUCLEATED RBCS 0 /100WBC; PLATELET COUNT* 169 thou/uL (150-400); POLYS 54.4 %; RBC 4.72 mil/uL (4.20-5.00); RDW-CV 13.3 % (10.5-14.5); WBC 9.8 thou/uL (4.0-11.0)
[2020-02-09 01:18] LABS: CALCIUM 8.8 mg/dL (8.5-10.1); POTASSIUM 3.7 mmol/L (3.5-5.1)
[2020-02-09 01:23] LABS: ALBUMIN 3.5 g/dL (3.4-5.0); TOTAL BILIRUBIN 0.3 mg/dL (<0.1-1.0); TOTAL PROTEIN 7.2 g/dL (6.4-8.2)
[2020-02-09] MEDS ORDERED: CARAFATE 1 GM TA1 GM PO (01:43)
[2020-02-09 02:08] VITALS: BP 161/95
--- NOTE | 2020-02-09 10:26 | EKG ---
[place] [address] ELECTROCARDIOGRAM REPORT Name: HUONG CANADA Room: 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
== END 2020-02-09 02:10 | disposition home or self-care (01) ==
LOC: M.ERS 00:12
PROVIDERS: Emergency Medicine
DX: K29.70 Gastritis, unspecified, without bleeding (principal); J45.909 Unspecified asthma, uncomplicated; K21.9 Gastro-esophageal reflux disease without esophagitis; F31.9 Bipolar disorder, unspecified; F17.210 Nicotine dependence, cigarettes, uncomplicated; Z90.49 Acquired absence of other specified parts of digestive tract; Z90.710 Acquired absence of both cervix and uterus; Z85.43 Personal history of malignant neoplasm of ovary; Z88.0 Allergy status to penicillin; Z88.1 Allergy status to other antibiotic agents; Z88.6 Allergy status to analgesic agent; Z88.8 Allergy status to other drugs, medicaments and biological substances

== ENCOUNTER 2020-08-18 02:48 | Emergency (ER) | payer MEDICAID ==
[~2020-08-18] VITALS: Ht 180.3 cm; Wt 140.6 kg
[~2020-08-18 02:48] MED LIST changes: +REQUIP 0.25 M0.25 M1 PO; +TRIAMTERENE/HCT1 CA1 PO
[2020-08-18 03:11] LABS: URINE BILIRUBIN NEGATIVE (Negative); URINE BLOOD NEGATIVE (Negative); URINE CLARITY CLEAR; URINE COLOR YELLOW; URINE GLUCOSE-RANDOM NEGATIVE (Negative); URINE KETONES NEGATIVE (Negative); URINE LEUKOCYTES-REFLEX NEGATIVE (Negative); URINE NITRITE-REFLEX NEGATIVE (Negative); URINE PROTEIN NEGATIVE (Negative); URINE SPECIFIC GRAVITY 1.025 (1.005-1.030); URINE UROBILINOGEN 0.2 E.U./dl (0.2-1.0)
[2020-08-18 03:20] LABS: AMP/METHAMP Negative (Negative); BARBITURATES Negative (Negative); BENZODIAZEPINES Negative (Negative); COCAINE Negative (Negative); METHADONE Negative (Negative); OPIATES Negative (Negative); PCP Negative (Negative); THC Negative (Negative)
[2020-08-18 03:20] LABS: ABSOLUTE BASOPHILS 0.1 thou/uL (0.0-0.2); ABSOLUTE EOSINOPHILS 0.2 thou/uL (0.0-0.7); ABSOLUTE NEUTROPHILS 5.6 thou/uL (1.6-8.1); BASOPHILS 1.2 %; EOSINOPHILS 2.5 %; HEMATOCRIT 40.9 % (37.0-47.0); LYMPHOCYTES 30.1 %; MCHC 34.2 g/dL (28.0-37.0); MCV 87.8 fL (80.0-100.0); MONOCYTES 9.7 %; MPV 7.2 fl. (7.2-11.1); NUCLEATED RBCS 0 /100WBC; PLATELET COUNT* 194 thou/uL (150-400); POLYS 56.5 %; RBC 4.66 mil/uL (4.20-5.00); RDW-CV 13.2 % (10.5-14.5); WBC 9.9 thou/uL (4.0-11.0)
[2020-08-18 03:34] LABS: CALCIUM 8.7 mg/dL (8.5-10.1); CREATININE 0.9 mg/dL (0.6-1.3); POTASSIUM 3.3 mmol/L (3.5-5.1)
[2020-08-18 03:39] LABS: ALBUMIN 3.6 g/dL (3.4-5.0); TOTAL BILIRUBIN 0.4 mg/dL (<0.1-1.0); TOTAL PROTEIN 7.6 g/dL (6.4-8.2)
[2020-08-18] MEDS ORDERED: ZOFRAN ODT4 MG PO (03:59)
[2020-08-18] MEDS ORDERED: HYDROCODON-ACE1 EAC7 PO (03:59)
[2020-08-18 04:06] VITALS: BP 144/78
== END 2020-08-18 04:06 | disposition home or self-care (01) ==
LOC: M.ERS 02:48
PROVIDERS: Personal Emergency Response Attendant
DX: R10.32 Left lower quadrant pain (principal); J45.909 Unspecified asthma, uncomplicated; K21.9 Gastro-esophageal reflux disease without esophagitis; F17.210 Nicotine dependence, cigarettes, uncomplicated; Z90.49 Acquired absence of other specified parts of digestive tract; Z90.710 Acquired absence of both cervix and uterus; Z85.43 Personal history of malignant neoplasm of ovary; Z88.0 Allergy status to penicillin; Z88.6 Allergy status to analgesic agent; Z88.8 Allergy status to other drugs, medicaments and biological substances; Z79.899 Other long term (current) drug therapy

== ENCOUNTER 2021-05-14 00:33 | Emergency (ER) | payer MEDICAID ==
[~2021-05-14] VITALS: Ht 180.3 cm; Wt 145.2 kg
[~2021-05-14 00:33] MED LIST changes: +HYDROCODON-ACE1 EAC7 PO
[2021-05-14 01:24] LABS: HEMATOCRIT 42.2 % (37.0-47.0); HEMOGLOBIN 14.2 gm/dL (12.0-15.0); MCH 29.3 pg (26.0-34.0); MCHC 33.6 g/dL (28.0-37.0); MCV 87.3 fL (80.0-100.0); MPV 7.6 fl. (7.2-11.1); RBC 4.83 mil/uL (4.20-5.00); RDW-CV 13.5 % (10.5-14.5); WBC 9.9 thou/uL (4.0-11.0)
[2021-05-14 01:27] LABS: CALCIUM 9.3 mg/dL (8.5-10.1); POTASSIUM 3.2 mmol/L (3.5-5.1)
[2021-05-14 01:32] LABS: ALBUMIN 3.9 g/dL (3.4-5.0); TOTAL BILIRUBIN 0.4 mg/dL (<0.1-1.0); TOTAL PROTEIN 7.9 g/dL (6.4-8.2)
[2021-05-14 01:34] LABS: AMP/METHAMP Negative (Negative); BARBITURATES Negative (Negative); BENZODIAZEPINES Negative (Negative); COCAINE Negative (Negative); METHADONE Negative (Negative); OPIATES Negative (Negative); PCP Negative (Negative); THC Negative (Negative)
[2021-05-14 02:31] VITALS: BP 117/70
== END 2021-05-14 02:31 | disposition home or self-care (01) ==
LOC: M.ERS 00:33
PROVIDERS: Personal Emergency Response Attendant
DX: G89.29 Other chronic pain (principal); R10.31 Right lower quadrant pain; R11.2 Nausea with vomiting, unspecified; J45.909 Unspecified asthma, uncomplicated; K21.9 Gastro-esophageal reflux disease without esophagitis; F17.210 Nicotine dependence, cigarettes, uncomplicated; Z88.0 Allergy status to penicillin; Z88.1 Allergy status to other antibiotic agents; Z88.6 Allergy status to analgesic agent; Z88.8 Allergy status to other drugs, medicaments and biological substances; Z90.49 Acquired absence of other specified parts of digestive tract; Z90.710 Acquired absence of both cervix and uterus; Z79.899 Other long term (current) drug therapy; Z85.43 Personal history of malignant neoplasm of ovary